=== PATIENT | female | born 1980 | race Caucasian/White ===

== ENCOUNTER 2024-01-23 07:17 | Day surgery (SDC) | payer OTHER ==
[~2024-01-23] VITALS: Ht 154.9 cm; Wt 68.9 kg
[~2024-01-23 07:17] MED LIST: ceFAZolin SODIUM 2 GM in D5W 100 ML IV ONE
[2024-01-23 07:44] LABS: HCG,QUAL RESULT NEGATIVE (NEGATIVE)
[2024-01-23] MEDS ORDERED: BUPIVACAINE /PF 0.25% 30 ML VIAL INJ ONE (09:10)
[2024-01-23] MEDS ORDERED: ONDANSETRON HCL 4 MG/2 ML VIAL IVP PRN (10:00)
[2024-01-23] MEDS ORDERED: HYDROmorphone 1 MG/ML INJ. CARTRIDGE IVP PRN (10:00)
[2024-01-23] MEDS ORDERED: HYDROmorphone 2 MG/ML VIAL IVP PRN (10:00)
[2024-01-23] MEDS ORDERED: KETOROLAC TROMETHAMINE 30 MG VIAL IVP PRN (10:00)
[2024-01-23] MEDS ORDERED: LR 1,000 ML IV SCH (10:00)
[2024-01-23 11:24] VITALS: O2SAT 98
[2024-01-23 13:14] VITALS: BP_SYST 118; PULSE 75; RESP 18
== END 2024-01-23 12:50 | disposition home or self-care (01) ==
LOC: SDS 07:17 → SMU 07:18 → EDSEX 09:00 → SDS 12:50
PROVIDERS: ATTEND Surgery
DX: C50.912 Malignant neoplasm of unspecified site of left female breast (principal); Z51.11 Encounter for antineoplastic chemotherapy; I10 Essential (primary) hypertension; E11.9 Type 2 diabetes mellitus without complications; E78.5 Hyperlipidemia, unspecified; Z98.890 Other specified postprocedural states; Z79.84 Long term (current) use of oral hypoglycemic drugs; Z79.899 Other long term (current) drug therapy; Z80.3 Family history of malignant neoplasm of breast
CPT/HCPCS: 87081; 36561; 84703; 71045; 77001; 76937; 82948; J7060; C1788; 76000; J0690; J1644; J1885; J2250; J2405; J2704; J2765; J3010; J3490; J7120